=== PATIENT | male | born 1980 | race Caucasian/White ===

== ENCOUNTER 2023-01-12 19:58 | Emergency (ER) | payer OTHER, SELFPAY ==
--- NOTE | ~2023-01-12 | XR_ITS ---
XR knee RT min 4V 01/12/2023 20:55 Indication: Right knee pain after fall Procedure: 4 views right knee Comparison: No prior studies for comparison. Findings: There is mildly depressed right lateral tibial plateau fracture. Large joint effusion. No f oreign bodies. Impression: 1: Mildly depressed right lateral tibial plateau fracture. 2: Large joint effusion. Reviewed, dictated and finalized at location A. RUMENTATION AND CONTROLS TECHNICIAN Impression: 1: Mildly depressed right lateral tibial plateau fracture. 2: Large joint effusion.
[2023-01-12 20:25] VITALS: BP 174/88; PULSE 94; RESP 18; TEMP 36.5; O2SAT 96
[2023-01-12 22:09] VITALS: BP 152/95; PULSE 93; RESP 18; O2SAT 100
--- NOTE | 2023-01-12 22:24 | ED.GENADULT ---
HPI - General Adult General Chief complaint: Extremity Injury, Lower Stated complaint: R knee injury Time Seen by Provider: 01/12/23 22:05 Source: patient Mode of arrival: ambulatory Limitations: no limitations History of Present Illness HPI narrative: This is a 42-year-old male who presents to the ED with chief complaint of right knee injury that occurred yesterday evening. When he was walking down the stairs when he felt his foot slipped and his knee bent to the side. He reports hearing a pop and falling to the ground. He had immediate pain and was not able to bear weight today. denies numbness, weakness, any further sites of pain or injury. Related Data Allergies Allergy/AdvReac Type Severity Reaction Status Date / Time No Known Allergies Allergy Verified 01/12/23 20:32 Review of Systems Review of Systems: All systems as dictated in HPI Exam Narrative: GENERAL: Well-appearing, well-nourished, and in no acute distress. HEAD: Normocephalic, atraumatic. EYES: PERRLA and EOMI. ENT: Nares clear, no rhinorrhea or epistaxis. Mucous membranes moist. Oropharynx without tonsillar hypertrophy exudate or other lesions. NECK: Supple. No adenopathy or masses. CHEST: No respiratory distress. Clear to auscultation. No wheezes rales or rhonchi HEART: Regular rate and rhythm. No murmur heard. Normal peripheral pulses. ABDOMEN: Soft, nontender, nondistended, normal active bowel sounds. MSK: Tenderness to the right lateral lower knee. No bruising or deformity. No crepitus. Nonambulatory. Ligamentous exam intact. neurovascularly intact distally. Soft compartments. SKIN: Warm, dry, no rash. NEURO: Alert and oriented x3. No focal deficits. PSYCH: Normal mood and affect. Course Vital Signs Vital signs: Vital Signs Temperature 97.7 F 01/12/23 20:25 Pulse Rate 94 01/12/23 20:25 Respiratory Rate 18 01/12/23 20:25 Blood Pressure 174/88 H 01/12/23 20:25 Pulse Oximetry 96 01/12/23 20:25 Oxygen Delivery Room Air 01/12/23 20:25 Temperature 97.7 F 01/12/23 20:25 Pulse Rate 91 01/12/23 22:28 Respiratory Rate 17 01/12/23 22:28 Blood Pressure 161/90 H 12/02/23 22:28 Pulse Oximetry 99 01/12/23 22:28 Oxygen Delivery Room Air 01/12/23 20:25 Medical Decision Making MDM Narrative Medical decision making narrative: this is a 42-year-old male who presents to the ED with chief complaint of right knee pain following an injury in which he fell down his back porch stairs last night. Vitals are normal. Exam reveals right lateral inferior knee tenderness. Swelling throughout the knee. He is nonweightbearing. No deformity. Neurovascularly intact. Soft compartments. X-ray show mildly depressed right lateral tibial plateau fracture. Discussed the case with Dr. Wiseman (Ortho) who is good with following up the patient in clinic. Patient was given knee immobilizer and he has crutches from home. Instructed to remain nonweightbearing. Fishtail prescription given for breakthrough pain. Pt will be discharged in stable condition. Return precautions given and supportive measures discussed. Pt is understanding and agreeable with plan for discharge and follow-up with ortho Vital Signs Vital Signs: Vital Signs Temperature 97.7 F 01/12/23 20:25 Pulse Rate 94 01/12/23 20:25 Respiratory Rate 18 01/12/23 20:25 Blood Pressure 174/88 H 01/12/23 20:25 Pulse Oximetry 96 01/12/23 20:25 Oxygen Delivery Room Air 01/12/23 20:25 Temperature 97.7 F 01/12/23 20:25 Pulse Rate 91 01/12/23 22:28 Respiratory Rate 17 01/12/23 22:28 Blood Pressure 161/90 H 01/12/23 22:28 Pulse Oximetry 99 01/12/23 22:28 Oxygen Delivery Room Air 01/12/23 20:25 Discharge Plan Discharge Clinical Impression: Closed fracture of lateral portion of right tibial plateau Patient Disposition: Home, Self-Care Condition: Stable Instructions: Antibiotic Form Additiona
[2023-01-12 22:28] VITALS: BP 161/90; PULSE 91; RESP 17; O2SAT 99
[2023-01-12] MEDS: HYDROcodone/acetaminophen (*CRX) 7.5-325 MG TABLET 1 TAB PO (22:43)
== END 2023-01-12 22:50 | disposition home or self-care (01) ==
PROVIDERS: Emergency Provider Physician Assistant
DX: S82.121A Displaced fracture of lateral condyle of right tibia, initial encounter for closed fracture (principal); W10.9XXA Fall (on) (from) unspecified stairs and steps, initial encounter
CPT/HCPCS: 73564; 99284; A9270

== ENCOUNTER → 2023-01-17 09:06 | Outpatient (CLI) | payer OTHER, SELFPAY ==
--- NOTE | ~2023-01-17 | CT_ITS ---
EXAMINATION: CT knee RT wo con DATE: 01/17/2023 09:23 INDICATION: Displaced bicondylar fracture of the right tibia TECHNIQUE: High resolution computed tomography (CT) of the right knee was performed without intraveno us contrast. Additional sagittal and coronal reconstructions were performed. Automated exposure contr ol and iterative reconstruction technique were employed. The dose-length product was 227.57 mGy-cm. COMPARISON: None FINDINGS: Comminuted intra-articular fracture of the lateral tibial plateau. This includes a central punch type depressed fracture fragment which measures 2.7 cm AP and 2.0 cm medial to lateral involving the majority of the anterior half of the lateral tibial plateau with up to 5 mm step-off at the articular cortex. One of the nondisplaced fracture fragments extends medially to include the lateral intercond ylar eminence. No other fractures identified with no involvement of the medial tibial plateau. Modera te-sized layering lipohemarthrosis at the suprapatellar pouch. Aside from localized widening in the r egion of the depressed fracture fragment. Joint spaces appear normal. Tiny marginal osteophytes along the lateral margin of the lateral patellar facet. There is a 1 cm nodular region of soft tissue density in the intramedullary fracture of the proximal tibial metadiaphyseal region which given the adjacent fracture most likely represents small intramedu llary hematoma. IMPRESSION: 1. Comminuted intra-articular fracture of the lateral tibial plateau and lateral intercondylar eminen ce with up to 5 mm depression of a significant portion of the anterior articular surface of the later al tibial plateau. 2. Moderate-sized right knee lipohemarthrosis. 3. Indeterminate 1 cm soft tissue density nodule in the medullary space of the proximal tibial metadi aphyseal region most likely a small posttraumatic hematoma but could consider follow-up CT or MRI aft er healing of the fracture and any associated surgery. Reviewed, dictated and finalized at location A. TER CARTOGRAPHIC IMPRESSION: 1. Comminuted intra-articular fracture of the lateral tibial plateau and latera l intercondylar eminence with up to 5 mm depression of a significant portion of the anterior articular surface of the lateral tibial plateau. 2. Moderate-sized right knee lipohemarthrosis. 3. Indeterminate 1 cm soft tissue density nodule in the medullary space of the proximal tibial metadiaphyseal region most likely a small posttraumatic hematom a but could consider follow-up CT or MRI after healing of the fracture and any associated surgery.
== END ==
PROVIDERS: PCP Orthopaedic Surgery; Visit Provider Orthopaedic Surgery
DX: S82.141A Displaced bicondylar fracture of right tibia, initial encounter for closed fracture (principal); R93.6 Abnormal findings on diagnostic imaging of limbs
CPT/HCPCS: 73700

== ENCOUNTER 2023-01-22 01:29 | Day surgery (SDC) | payer OTHER, SELFPAY ==
[2023-01-18 10:48] VITALS: BMI 32.8
--- NOTE | 2023-01-18 10:54 | PC.NURSE ---
Report to the Outpatient Waiting Room, entrance under the green pavilion located off [facility], at time _0930 _ on date _01/22/23. Planned Procedure Time: _1130__. Time changes happen often and if your time is changed the preop area will call you the afternoon before. - You and your visitor will be asked to self-screen and do not enter if you have any COVID symptoms. - A mask is optional within the hospital at this time. Patients may have clear liquids (water, carbonated beverages, clear teas, apple juice) until 3 hours prior to surgery with a maximum of 20 ounces. - No food from midnight until time of surgery - Infants may have breast milk until 4 hours before surgery, formula 6 hours prior to surgery. - Children will be allowed to drink immediately following surgery. If applicable, please bring a bottle or sippy cup to assist with drinking. Juice, water, soda, and popsicles are readily available. For infants on formula, please bring formula the day of surgery. Pacifiers are allowed. Take the following medications with a SIP of water the morning of surgery: PAIN OILL IF NEEDED DO NOT STOP ANY OF YOUR OTHER PRESCRIPTION MEDICATIONS PRIOR TO SURGERY ?EXCEPT THE FOLLOWING Medications to discontinue per physician NONE Date to take last dose Please no make-up, nail maltese, hairspray, perfume, deodorant, or body powder the day of surgery. No jewelry (including any body piercings) or valuables the day of surgery, leave them at home. Please take a shower or bath the night before, or the morning of, surgery with an antibacterial soap. Wear comfortable, loose fitting clothing. Children are encouraged to wear pajamas. - Jewelry must be removed prior to entering the operating room. Rings and piercings that are not removed may be cut off. - The hospital will not accept responsibility for valuables. - Please leave all valuables, including medications, at home the day of surgery. If you are going home after surgery, a licensed jitney driver must drive you home. - NO public transportation without another adult if you receive anesthesia. - We recommend that an adult stay with you for 24 hours following discharge. - We also recommend that you do not drive, make important decision, drink alcoholic beverages, or take any drugs that were not prescribed by your health care provider for at least 24 hours after your discharge time. For Pediatric surgeries, we recommend two adults accompany the child home. Follow any additional instructions given to you from your surgeon. If you or anyone in your household have experienced Covid symptoms in the past week, please notify your surgeon or the nurse liaison at the phone number below for possible testing. Telephone instructions given to PATIENT_and asked if any additional questions and then verbalized understanding. Patient advised to call surgeon office or pre surgery nurse liaison [phone] if any additional questions.
[2023-01-22] VITALS (12 sets, daily range): BP systolic 147–184; BP diastolic 74–105; PULSE 72–110; RESP 12–18; TEMP 36.1–37.2; O2SAT 93–100; BMI 32.6
--- NOTE | ~2023-01-22 | XR_ITS ---
EXAMINATION: XR surgery orthopedic DATE: 01/22/2023 12:41 MAMMOGRAPHY TECH INDICATION: ORIF RT TIBIAL PLATEAU . TECHNIQUE: 4 fluoroscopic images of the right knee were obtained during right tibial plateau ORIF per formed by the surgeon. I was not present in the operating room. Fluoroscopy exposure time was 798.1 s econds. Air Kerma 86.85 mGy. DAP 1.51 mGym2. COMPARISON: CT knee 01/17/2023 FINDINGS: Screw and plate fixation of the right tibial plateau fracture. There is a fractured screw inferiorly. IMPRESSION: Fluoroscopic documentation of right tibial plateau ORIF. Please refer to the operative note for compl ete procedural details . Reviewed, dictated and finalized at location K. OGRAPHY TECH IMPRESSION: Fluoroscopic documentation of right tibial plateau ORIF. Please refer to the op erative note for complete procedural details .
--- NOTE | 2023-01-22 07:15 | WPDHPUPDATE1 ---
History and Physical Update Update Date/Time: 01/22/23 07:15 History and Physical has been reviewed, including an updated exam of the patient. There are NO changes in the patient's condition. Risks, benefits, and alternatives have been discussed and questions answered. Patient agrees to proceed with procedure.
[2023-01-22] MEDS: LACTATED RINGERS 1,000 ML 30 ML IV CONT ×2 (10:30→16:21)
--- NOTE | 2023-01-22 10:49 | WPDANESEPPF ---
Anes - Initial Pre Proc Eval Procedure: Operation Date: 01/22/23 11:30 Proposed Procedures p Open Reduction Internal Fixation of Right Knee Tibial Plateau Fracture - Bandar Caballero MD Date/Time: 01/22/23 10:49 Surgeon: Bandar Caballero MD Pre Op Diagnosis: right knee Tibial Plateau Fracture Patient Data Age: 42 Gender: M Height: 1.83 m Weight: 109.2 kg Last Vital Signs Temp 36.6 C 01/22/23 09:40 Pulse 85 01/22/23 09:40 Resp 18 01/22/23 09:40 BP 179/93 H 01/22/23 09:40 Pulse Ox 98 01/22/23 09:40 O2 Del Method Room Air 01/22/23 09:40 Allergies Allergy/AdvReac Type Severity Reaction Status Date / Time No Known Allergies Allergy Verified 01/22/23 09:54 Home Medications Medication Instructions Recorded Confirmed Type oxycodone-acetaminophen 5 mg-325 1 tablet PO Q8H PRN pain #30 tabs 01/16/23 01/22/23 Rx mg tablet chlorhexidine gluconate 4 % 1 applic topical ONCE #237 mL 01/18/23 01/22/23 Rx topical liquid (Hibiclens) Patient hx anesthesia problems: none Family hx anesthesia problems: none Results Review: All pre-operative results and documents have been reviewed as part of the pre-operative evaluation. [facility] Social History Social History Smoking packs per day: 0.5 Smoking cigarettes per day: 10.0 Years smoked: 13 Smoking pack-years: 6.50 Smoking status: Former smoker Tobacco type: cigarettes Additional smoking assessment comments: QUIT 2016 Alcohol intake: current Drinks per week: 7 Substance use: former Substance use type: marijuana Other substance usage details: HAS NOT USED IN YEARS Living arrangements: with family Occupation/Education: occupation Additional occupation/education comments: Marry coffman @ [employer] Gender identity (if verbalized by the patient): Male Anes - Eval Final PreProcedure Day of Procedure 01/22/23 10:49 Patient weight: obese Heart: regular rate and rhythm Lungs: clear to auscultation Airway: Mallampati scale class II Neurological: alert and oriented Last oral intake: >/= 8 hours ASA classification: III Emergent: no Anesthetic plan: proceed Anesthesia type and monitoring: general LMA and standard monitoring Results Review: All pre-operative results and documents have been reviewed as part of the pre-operative evaluation. Informed Consent: The patient's anesthetic plan and its attendant risks and benefits were discussed with the patient/family/POA. Questions were solicited and answers provided to the satisfaction of the patient/family/POA.
[2023-01-22] MEDS: ACETAMINOPHEN 500 MG TABLET 1000 MG PO (11:15)
[2023-01-22] MEDS: CELECOXIB 200 MG CAPSULE PO (11:15)
[2023-01-22] MEDS: ceFAZolin 2 GM/D5W 50 ML 2 GM/50 ML BAG IVPB ×2 (12:41→20:39)
[2023-01-22] MEDS: BUPivacaine HCL 0.5% 10 ML AMP 30 ML INFILTRATE (13:28)
[2023-01-22] MEDS: TRANEXAMIC ACID 1,000 MG/10 ML AMPUL 1000 MG IV PUSH (15:45)
[2023-01-22] MEDS: fentaNYL CITRATE INJ (*CRX) 100 MCG/2 ML VIAL 25 MCG IV PUSH ×8 (16:28→17:01)
--- NOTE | 2023-01-22 16:28 | P.OP_ITS ---
Procedure Note - Detailed Date of Procedure 01/22/23 Pre-op Diagnosis right knee Tibial Plateau Fracture Post-op Diagnosis Same Procedure Performed ORIF RIGHT TIBIAL PLATEAU FRACTURE Surgeon Bandar Caballero MD Anesthesia General Description of Procedure THE PATIENT WAS TAKEN TO THE OR IN STABLE CONDITION AND PLACED UNDER GENERAL ANESTHESIA. THE RIGHT LOWER EXTREMITY WAS PREPPED AND DRAPED STERILE. AN INCISION WAS MADE OVER THE ANTERIOR LATERAL ASPECT OF THE KNEE AND CONTINUED ANTERIORLY OVER THE PROXIMAL LEG. DISSECTION CONTINUED TILL THE FASCIA WAS IDENTIFIED AND INCISED. AN ARTHROTOMY WAS MADE WITH CARE TO PRESERVE THE LATERAL MENISCUS. FRESH FRACTURE HEMATOMA WAS DRAINED FROM THE KNEE JOINT. DIS SECTION CONTINUED OVER THE LATERAL PLATEAU AND IN TO THE PROXIMAL LATERAL TIBIAL SHAFT. C ARM XRAYS WERE TAKEN AND USING FLUOROSCOPY THE FRACTURE WAS IDENTIFIED. A BONE WINDOW WAS MADE IN THE ANTERIOR LATERAL TIBIA. UNDER DIRECT VISUALIZATION AND USING FLUOROSCOPY THE LATERAL PLATEAU FRACTURE WAS ELEVATED USING A BONE TAMP UNTIL THE LATERAL SURFACE WAS CONGRUENT. NEXT, MORSELIZED ALLOGRAFT BONE WAS PLACED UNDER THE PLATEAU AND SUBCHONDRAL BONE AND METAPHYSIS SECURING THE PLATEAU FRACTURE IN PLACE. A MARLA LATERAL PLATEAU PLATE WAS USED TO BRIDGE THE FRACTURE FRAGMENTS WITH MULTIPLE SCREWS IN THE METAPHYSEAL BONE AND PROXIMAL TIBIAL SHAFT. THE CONSTRUCT WAS VERY STABLE. C ARM XRAYS WERE TAKEN SHOWING FRACTURE REDUCED AND HARDWARE IN GOOD POSITION. THE TOURNIQUET WAS DEFLATED AND THE BLEEDERS WERE CAUTERIZED. THE WOUND WAS IRRIGATED WITH STERILE BETADINE AND WATER. THE DEEP FASCIAL LAYERS WERE APPROXIMATED WITH #1 AND 0 VICRYL SUTURES. THE SUB CUTANEOUS LAYER WITH 2-0 VICRYL AND THE SKIN WITH CLARISSE. THE WOUND WAS WASHED AND PLACED IN A STERILE DRESSING. A KNEE IMMOBILIZER WAS PLACED. PATIENT WAS EXTUBATED AND SENT TO RECOVERY ROOM. Estimated Blood Loss -100.0 Complications No immediate complications Disposition PACU
[2023-01-22] MEDS: KETOROLAC 30 MG/ML VIAL (*BKC) IV PUSH (17:00)
[2023-01-22] MEDS: HYDROmorphone HCL INJ (*CRX) 1 MG/ML SYR 0.5 MG IV PUSH ×4 (17:10→17:28)
[2023-01-22] MEDS: HYDROcodone/acetaminophen (*CRX) 7.5-325 MG TABLET 2 TAB PO (17:47)
[2023-01-22] MEDS: ONDANSETRON INJ 4 MG/2 ML VIAL IV PUSH (17:49)
[2023-01-22] MEDS: KETOROLAC 15 MG/ML VIAL (*BKC) IM (17:49)
--- NOTE | 2023-01-22 18:02 | ADMGEN ---
This patient, Diaz Collins, was admitted to [facility] Surg Room 326-01. Patient/family oriented to hospital policies and general routines including ID bracelet, bed and alarms, visiting hours, pain management, procedures, bathroom and other care routines, personal items, smoking policy, room service/diet, and visiting hours. Information on how to activate the Rapid Response Team has been discussed. Patient/Family are encouraged to report perceived risks to care and to ask questions if they do not understand what they are told or what they should do.
[2023-01-22] MEDS: DEXTROSE 5%/0.45% SOD CHL 1,000 ML 80 ML IV CONT (19:00)
[2023-01-22] MEDS: diazePAM (*CRX) 5 MG TABLET PO (20:39)
[2023-01-22] MEDS: FAMOTIDINE 20 MG TABLET PO (20:39)
[2023-01-22] MEDS: ASPIRIN 325 MG ENTERIC TABLET PO (20:39)
[2023-01-23] MEDS: KETOROLAC 15 MG/ML VIAL (*BKC) IM ×2 (00:42→05:45)
[2023-01-23 01:30] VITALS: BP 170/83; PULSE 87; RESP 18; TEMP 35.9; O2SAT 98
[2023-01-23] MEDS: HYDROcodone/acetaminophen (*CRX) 7.5-325 MG TABLET 1 TAB PO ×3 (05:44→15:52)
[2023-01-23] MEDS: ceFAZolin 2 GM/D5W 50 ML 2 GM/50 ML BAG IVPB ×2 (05:46→12:32)
[2023-01-23 06:25] VITALS: BP 154/88; PULSE 78; RESP 18; TEMP 36.6; O2SAT 99
[2023-01-23 08:00] VITALS: BP 155/83; PULSE 77; RESP 16; TEMP 36.8; O2SAT 98
[2023-01-23] MEDS: FAMOTIDINE 20 MG TABLET PO (08:01)
[2023-01-23] MEDS: ASPIRIN 325 MG ENTERIC TABLET PO (08:01)
[2023-01-23] MEDS: diazePAM (*CRX) 5 MG TABLET PO ×2 (08:04→15:57)
--- NOTE | 2023-01-23 11:08 | PM.PNORT ---
Progress Note: A&P Assessment and Plan (1) Tibial plateau fracture, right: Qualifiers: Encounter type: initial encounter Fracture type: closed Qualified Code(s): S82.141A - Displaced bicondylar fracture of right tibia, initial encounter for closed fracture Code(s): S82.141A - Displaced bicondylar fracture of right tibia, initial encounter for closed fracture Status: Acute Assessment and Plan: POD 1 DOING WELL. OK TO DC HOME, F/U IN 2 WEEKS Subjective Subjective Date/Time Seen: 01/23/23 11:08 Interval history: POD 1 DOING WELL. NO CALF PAIN. GOOD PROGRESS WITH PT Exam Extrem: Other: VSS AFEBRILE DRESSING DRY NV INTACT, CALF SOFT NON TENDER, NEG HOMANS SIGN Objective Data Vital Signs Vital Signs: Vital Signs - 24 hr 01/22/23 16:21 01/22/23 16:35 01/22/23 16:50 Temperature 36.5 C Pulse Rate 110 H 94 95 Respiratory Rate 12 16 16 Blood Pressure 184/104 H 176/99 H 176/95 H Pulse Oximetry 99 97 100 Oxygen Delivery Simple Face Mask Simple Face Mask Room Air Oxygen Flow Rate 6 6 01/22/23 17:05 01/22/23 17:20 01/22/23 17:35 Temperature Pulse Rate 88 99 95 Respiratory Rate 14 14 14 Blood Pressure 165/97 H 182/95 H 160/96 H Pulse Oximetry 93 93 96 Oxygen Delivery Room Air Room Air Room Air Oxygen Flow Rate 01/22/23 17:50 01/22/23 18:05 01/22/23 18:30 Temperature 37.2 C 36.7 C 36.3 C L Pulse Rate 92 103 H 72 Respiratory Rate 16 16 16 Blood Pressure 175/82 H 169/105 H 147/74 H Pulse Oximetry 97 96 94 Oxygen Delivery Oxygen Flow Rate 01/22/23 20:40 01/23/23 01:30 01/23/23 06:25 Temperature 36.1 C L 35.9 C L 36.6 C Pulse Rate 89 87 78 Respiratory Rate 18 18 18 Blood Pressure 171/88 H 170/83 H 154/88 H Pulse Oximetry 98 98 99 Oxygen Delivery Oxygen Flow Rate 01/23/23 08:00 01/23/23 08:00 01/22/23 18:16 Temperature 36.8 C 36.7 C Pulse Rate 77 103 H Respiratory Rate 16 Blood Pressure 155/83 H 169/105 H Pulse Oximetry 98 98 96 Oxygen Delivery Room Air Oxygen Flow Rate Intake/Output Intake/Output: Intake & Output 01/20/23 01/21/23 01/22/23 01/23/23 23:59 23:59 23:59 23:59 Intake Total 700 640 Output Total 1175 Balance 700 -535 Meds/Results Medications: Active Medications Generic Name Dose Route Start Last Admin Trade Name Freq PRN Reason Stop Dose Admin Acetaminophen 650 mg 01/22/23 16:45 Acetaminophen 325 Mg Tablet PO Q6H PRN Pain Rated 1-3 Hydrocodone Bitart/Acetaminophen 1 tab 01/22/23 16:45 01/23/23 08:26 Hydrocodone/Acetaminophen (*Crx) 7.5-325 Mg Tablet PO 1 tab Q3H PRN Administration Pain Rated 4-6 Hydrocodone Bitart/Acetaminophen 2 tab 01/22/23 16:45 01/22/23 17:47 Hydrocodone/Acetaminophen (*Crx) 7.5-325 Mg Tablet PO 2 tab Q6H PRN Administration Pain Rated 7-10 Aspirin 325 mg 01/22/23 21:00 01/23/23 08:01 Aspirin 325 Mg Enteric Tablet PO 325 mg Q12HR CODY Administration Diazepam 5 mg 01/22/23 16:45 01/23/23 08:04 Diazepam (*Crx) 5 Mg Tablet PO 5 mg Q8H PRN Administration Muscle Spasm Famotidine 20 mg 01/22/23 21:00 01/23/23 08:01 Famotidine 20 Mg Tablet PO 20 mg Q12HR CODY Administration Cefazolin Sodium 2 gm in 50 mls @ 100 mls/hr 01/22/23 21:00 01/23/23 06:16 Ancef 2 Gm/D5w 50 Ml IVPB 01/23/23 13:29 Infused Q8H CODY Infusion Naloxone HCl 0.1 mg 01/22/23 16:45 Naloxone Hcl 0.4 Mg/Ml Vial IV PUSH Q2M PRN Opiate Reversal Ondansetron HCl 4 mg 01/22/23 16:45 01/22/23 17:49 Ondansetron Inj 4 Mg/2 Ml Vial IV PUSH 4 mg Q4H PRN Administration Nausea And Vomiting Senna/Docusate Sodium 2 tab 01/22/23 17:00 01/23/23 08:05 Senna/Docusate Sodium Tablet PO Not Given BID CODY Radiology Results: ITS Impressions Intraoperative X-Ray 01/22/23 16:40 IMPRESSION: Fluoroscopic documentation of right tibial plateau ORIF. Please refer to the operative note
[2023-01-23] MEDS: HYDROcodone/acetaminophen (*CRX) 7.5-325 MG TABLET 2 TAB PO (11:11)
--- NOTE | 2023-01-23 11:11 | PM.DS ---
DS: Admitting Diagnosis Discharge Date 01/23/23 Admitting Diagnosis RIGHT TIBIAL PLATEAU FRACTURE DS: Discharge Diagnosis Discharge Diagnosis (1) Tibial plateau fracture, right: Qualifiers: Encounter type: initial encounter Fracture type: closed Qualified Code(s): S82.141A - Displaced bicondylar fracture of right tibia, initial encounter for closed fracture Code(s): S82.141A - Displaced bicondylar fracture of right tibia, initial encounter for closed fracture Status: Acute DS: Summary Hospital Course Reason for hospitalization: RIGHT TIBIAL PLATEAU ORIF Hospital Course: PATIENT WAS ADMITTED S/P ORIF RIGHT TIBIAL PLATEAU FRACTURE FOR POSTOPERATIVE MEDICAL MANAGEMENT, PAIN CONTROL AND MOBILIZATION WITH PHYSICAL AND OCCUPATIONAL THERAPY. THE PATIENT PROGRESSED WELL WITH PT/OT. LABS AND VITALS REMAINED STABLE AND PAIN WELL CONTROLLED. THE PATIENT HAS BEEN CLEARED TO BE DISCHARGED HOME. FOLLOW UP APPOINTMENT SCHEDULED. DISCHARGE INSTRUCTIONS DISCUSSED AT LENGTH WITH THE PATIENT. MEDICATIONS REVIEWED. Status at Discharge Cognitive/behavioral status at discharge: STABLE Time Spent with Patient Time attestation: Total time spent providing and/or coordinating discharge services: DS: Data Procedures/Treatments: ORIF RIGHT TIBIAL PLATEAU FRACTURE Discharge Plan Discharge Patient Disposition: Home, Self-Care Discharge Instructions: NON WEIGHT BEARING RIGHT LEG. KEEP DRESSING CLEAN AND DRY, ICE AND ELEVATE RIGHT LEG Stand Alone Forms: General Discharge Instructions Follow-up/Referrals: Bandar Caballero MD [Physician] - 2 Weeks Discharge Medications: New hydrocodone-acetaminophen 5-325 mg tablet 1 tablet PO Q8H PRN (Reason: pain) Qty: 30 0RF Continued oxycodone-acetaminophen 5-325 mg tablet 1 tablet PO Q8H PRN (Reason: pain) Qty: 30 0RF Discontinued chlorhexidine gluconate [Hibiclens] 4 % liquid 1 applic topical ONCE Qty: 237 0RF Rx Instructions: Cleanse operative extremity, in shower, every day until day of surgery
[2023-01-23 12:00] VITALS: BP 149/82; PULSE 78; RESP 18; TEMP 36.2; O2SAT 97
--- NOTE | 2023-01-23 14:45 | WPDANESPN ---
Anes - Prog Note Post-Op Date/Time: 01/23/23 14:45 Cardiovascular status: normal Respiratory status: normal Airway patency: baseline Mental status: baseline Post-Op hydration status: normal Vital Signs: Last Vital Signs Temp 36.2 C L 01/23/23 12:00 Pulse 78 01/23/23 12:00 Resp 18 01/23/23 12:00 BP 149/82 H 01/23/23 12:00 Pulse Ox 97 01/23/23 12:00 O2 Del Method Room Air 01/23/23 10:28 O2 Flow Rate 6 01/22/23 16:35 Pain Score (VAS): 0 I/O: Intake & Output 01/22/23 01/23/23 01/23/23 23:59 07:59 15:59 Intake Total 650 400 480 Output Total 1175 Balance 650 -775 480 Post-procedural complaints: none Patient Feedback: Patient satisfied with anesthetic care.
== END 2023-01-23 16:30 | disposition home or self-care (01) ==
LOC: ANHSURGERY 09:29 → ANH3MEDSUR 17:16
PROVIDERS: Visit Provider Orthopaedic Surgery
PROC: (CPT 27536; principal; 2023-01-22 11:30)
DX: S82.141A Displaced bicondylar fracture of right tibia, initial encounter for closed fracture (principal); W10.9XXA Fall (on) (from) unspecified stairs and steps, initial encounter; Z87.891 Personal history of nicotine dependence; E66.9 Obesity, unspecified; Z68.32 Body mass index [BMI] 32.0-32.9, adult
CPT/HCPCS: 27536; 97161; 99199; A9270; C1713; J0690; J1100; J1170; J1885; J2250; J2405; J2704; J3010; J7120